=== PATIENT | male | born 1955 | race Caucasian/White ===

== ENCOUNTER → 2016-04-13 | Outpatient (CLI) | payer BC, OTHER ==
[2016-04-13 08:21] LABS: MEAN CORPUSCULAR HEMOGLOBIN 30.5 pg (27.0-33.0); MEAN CORPUSCULAR HGB CONC 34.1 g/dl (32.0-36.5); MEAN CORPUSCULAR VOLUME 89.3 fl (80.0-96.0); RED CELL DISTRIBUTION WIDTH 13.6 % (11.5-14.5); WHITE BLOOD COUNT 8.1 K/mm3 (4.0-10.0)
--- NOTE | 2016-04-13 08:40 | REP ---
PA AND LATERAL CHEST: INDICATION: Hypertension COMPARISON: PA and chest with left rib series 10/07/2014 Cardiomediastinal silhouette is normal. Lungs are clear bilaterally. There are mild degenerative changes within the thoracic spine with minimal thoracic dextroscoliosis. Soft tissues are within normal limits IMPRESSION: No acute cardiopulmonary process. Signed by Mattie Fields MD 04/13/2016 06:18 P
[2016-04-13 08:46] LABS: ALBUMIN 3.9 GM/DL (3.2-5.2); ALBUMIN/GLOBULIN RATIO 1.22 (1.00-1.93); ALKALINE PHOSPHATASE 96 U/L (45-117); ALT/SGPT 49 U/L (12-78); ANION GAP 8 MEQ/L (8-16); AST/SGOT 25 U/L (15-37); BILIRUBIN,TOTAL 0.7 MG/DL (0.2-1.0); BLOOD UREA NITROGEN 23 MG/DL (7-18); CALCIUM LEVEL 9.1 MG/DL (8.5-10.1); CARBON DIOXIDE LEVEL 28 MEQ/L (21-32); CHLORIDE LEVEL 107 MEQ/L (98-107); CHOLESTEROL LEVEL 241 MG/DL (<200); GLOMERULAR FILTRATION RATE > 60.0 (>56); GLUCOSE, FASTING 100 MG/DL (70-105); POTASSIUM SERUM 4.7 MEQ/L (3.5-5.1); SODIUM LEVEL 143 MEQ/L (136-145); TOTAL PROTEIN 7.1 GM/DL (6.4-8.2); TRIGLYCERIDES LEVEL 57 MG/DL (<150)
--- NOTE | 2016-04-14 17:13 | ECGEPIP ---
Stationary ECG Study [facility] Test Date: 2016-04-13 Pat Name: GINNY MATOS Department: Room: - Gender: M [employer]: : 1955 Requested By: Raghavendra Mayfield Order Number: [id number] Reading MD: Chago Raza Measurements Intervals [place] Rate: 71 P: 25 NC: 187 QRS: 24 QRSD: 113 T: 6 QT: 392 QTc: 428 Interpretive Statements NORMAL SINUS RHYTHM NORMAL Electronically Signed On 04-14-2016 17:13:52 EST by Chago Raza
== END ==
LOC: M LAB 07:34
PROVIDERS: ATTEND Family Medicine
DX: I10 Essential (primary) hypertension (principal)

== ENCOUNTER → 2016-06-20 | Outpatient (REF) | payer OTHER | LOC: M LAB REF 16:48 | PROVIDERS: ATTEND Physician Assistant | DX: J02.9 Acute pharyngitis, unspecified (principal) ==

== ENCOUNTER → 2016-09-12 | Outpatient (CLI) | payer BC, OTHER ==
[~2016-09-12] VITALS: Ht 180.3 cm; Wt 111.8 kg
[~2016-09-12] MED LIST: LIDOCAINE 2% INJ 100 MG/5 ML SDV (FOR ANES.) As Ordered ONE; NS 1,000 ML IV ONE; OMEP40CA2 PO; PROPOFOL 200 MG/20 ML VIAL As Ordered ONE
--- NOTE | 2016-09-12 10:02 | ROOR ---
Patient Name: Vincenzo Lee Procedure Date: 09/12/2016 9:34 AM Date of : 1955 Age: 60 Room: [facility] Gender: Male Note Status: Finalized Procedure: Upper Endoscopy + Biopsies Indications: Heartburn, Exclusion of Cochran's esophagus Providers: Dc Purcell MD Referring MD: CHARLEE ESCALERA MD Requesting Provider: Medicines: Monitored Anesthesia Care Complications: No immediate complications. Procedure: Pre-Anesthesia Assessment: - The heart rate, respiratory rate, oxygen saturations, blood pressure, adequacy of pulmonary ventilation, and response to care were monitored throughout the procedure. The Endoscope was introduced through the mouth, and advanced to the second part of duodenum. The upper GI endoscopy was accomplished without difficulty. The patient tolerated the procedure well. Findings: The Z-line was irregular and was found 41 cm from the incisors. Multiple biopsies were obtained with cold forceps for evaluation to rule out Cochran's Esophagus randomly at the gastroesophageal junction. No other significant abnormalities were identified in a careful examination of the stomach. Biopsies were taken with a cold forceps in the gastric antrum for Helicobacter pylori testing. The exam of the duodenum was otherwise normal. Impression: - Z-line irregular, 41 cm from the incisors. - Multiple biopsies were obtained at the gastroesophageal junction. - Biopsies were taken with a cold forceps for Helicobacter pylori testing. - The examination was otherwise normal. Recommendation: - Patient has a contact number available for emergencies. The signs and symptoms of potential delayed complications were discussed with the patient. Return to normal activities tomorrow. Written discharge instructions were provided to the patient. - High fiber diet. - Discharge patient to home. - Follow an antireflux regimen. - Continue present medications. - Await pathology results. - Telephone GI clinic for pathology results in 1 week. - Check Portal Online for Path Results.([email or web address]) - The findings and recommendations were discussed with the patient's family. Dc Purcell MD Dc Purcell MD 09/12/2016 10:01:54 AM This report has been signed electronically. Number of Addenda: 0 Note Initiated On: 09/12/2016 9:34 AM Estimated Blood Loss: Estimated blood loss: none.
--- NOTE | 2016-09-12 10:05 | ROOR ---
Patient Name: Vincenzo Lee Procedure Date: 09/12/2016 9:35 AM Date of : 1955 Age: 60 Room: [facility] Gender: Male Note Status: Finalized Procedure: Total Colonoscopy to Cecum Indications: Screening for colorectal malignant neoplasm Providers: Dc Purcell MD Referring MD: CHARLEE ESCALERA MD Requesting Provider: Medicines: Monitored Anesthesia Care Complications: No immediate complications. Procedure: Pre-Anesthesia Assessment: - The heart rate, respiratory rate, oxygen saturations, blood pressure, adequacy of pulmonary ventilation, and response to care were monitored throughout the procedure. The Colonoscope was introduced through the anus and advanced to the cecum, identified by appendiceal orifice and ileocecal valve. The colonoscopy was performed without difficulty. The patient tolerated the procedure well. The quality of the bowel preparation was excellent. Findings: The perianal and digital rectal examinations were normal. Non-bleeding internal hemorrhoids were found during retroflexion. The hemorrhoids were small and Grade I (internal hemorrhoids that do not prolapse). No other significant abnormalities were identified in a careful examination of the remainder of the colon. The exam was otherwise without abnormality on direct and retroflexion views. Impression: - Non-bleeding internal hemorrhoids. - The examination was otherwise normal on direct and retroflexion views. - No specimens collected. - The exam was otherwise normal to the cecum. Recommendation: - Patient has a contact number available for emergencies. The signs and symptoms of potential delayed complications were discussed with the patient. Return to normal activities tomorrow. Written discharge instructions were provided to the patient. - High fiber diet. - Discharge patient to home. - Continue present medications. - Repeat colonoscopy in 10 years for screening purposes. - Return to referring physician. - The findings and recommendations were discussed with the patient's family. Dc Purcell MD Dc Purcell MD 09/12/2016 10:05:29 AM This report has been signed electronically. Number of Addenda: 0 Note Initiated On: 09/12/2016 9:35 AM Estimated Blood Loss: Estimated blood loss: none.
[2016-09-12 10:15] VITALS: BP 138/69
== END | disposition home or self-care (01) ==
LOC: M OPP 08:54
PROVIDERS: ATTEND Internal Medicine Gastroenterology
DX: Z12.11 Encounter for screening for malignant neoplasm of colon (principal); K64.0 First degree hemorrhoids; R12 Heartburn; K22.8 Other specified diseases of esophagus; Z86.010 Personal history of colon polyps; Z79.899 Other long term (current) drug therapy
CPT/HCPCS: 43239; 88305; G0121

== ENCOUNTER → 2017-08-24 | Outpatient (REF) | payer OTHER ==
[2017-08-24 13:04] LABS: HEMATOCRIT 43.5 % (42.0-52.0); HEMOGLOBIN 15.2 g/dl (13.5-17.5); MEAN CORPUSCULAR HEMOGLOBIN 30.8 pg (27.0-33.0); MEAN CORPUSCULAR HGB CONC 34.9 g/dl (32.0-36.5); MEAN CORPUSCULAR VOLUME 88.1 fl (80.0-96.0); PLATELET COUNT, AUTOMATED 273 10^3/uL (150-450); RED BLOOD COUNT 4.94 10^6/uL (4.30-6.10); RED CELL DISTRIBUTION WIDTH 13.2 % (11.5-14.5); WHITE BLOOD COUNT 12.8 10^3/uL (4.0-10.0)
[2017-08-24 13:18] LABS: ADD MANUAL DIFFER YES; DIFF SLIDE NUMBER 242; POSITIVE MORPH POS FLAG
[2017-08-24 13:35] LABS: URIC ACID 4.1 MG/DL (3.5-7.2)
[2017-08-24 13:35] LABS: ANISOCYTOSIS 1+; BASOPHILS 1 % (0-4); C REACTIVE PROTEIN QUANTITATIV 2.62 MG/DL (0.00-0.30); LYMPHOCYTES 11 % (16-52); MONOCYTES 3 % (0-8); NEUTROPHILS 85 % (35-75); PLATELET ESTIMATE NORMAL (NORMAL); RHEUMATOID FACTOR QUANT < 10.0 IU/ML (<15.0)
[2017-08-24 13:44] LABS: ERYTHROCYTE SEDIMENTATION RATE 19 mm/hr (0-20)
[2017-08-26 00:07] LABS: ANTINUCLEAR ANTIBODIES DIRECT Negative (Negative); Lyme Disease IgG/IgM Antibodie <0.91 ISR (0.00-0.90); Lyme Disease IgM Ab Quantitati <0.80 index (0.00-0.79)
== END ==
LOC: M LABDRAW1 11:35
DX: M25.531 Pain in right wrist (principal)

== ENCOUNTER 2018-04-18 08:58 | Emergency (ER) | payer BC, OTHER ==
[~2018-04-18] VITALS: Ht 180.3 cm; Wt 104.5 kg
[~2018-04-18 08:58] MED LIST changes: -LIDOCAINE 2% INJ 100 MG/5 ML SDV (FOR ANES.) As Ordered ONE; -NS 1,000 ML IV ONE; -PROPOFOL 200 MG/20 ML VIAL As Ordered ONE
[2018-04-18 09:31] LABS: VENOUS BASE EXCESS 2.2 (-2.0-2.0); VENOUS HCO3 28.3 MEQ/L (23.0-27.0); VENOUS O2 SATURATION 91.4 % (60.0-80.0); VENOUS PARTIAL PRESSURE CO2 49.2 mmHg (38.0-50.0); VENOUS PARTIAL PRESSURE O2 63.8 mmHg (30.0-50.0); VENOUS PH 7.378 UNITS (7.330-7.430); VENOUS STANDARD HCO3 26.2 MEQ/L; VENOUS TOTAL CO2 29.8 MEQ/L (24.0-28.0)
[2018-04-18 09:33] LABS: BASO # 0.1 10^3/uL (0.0-0.2); BASO % 0.6 % (0.0-1.0); EOS # 0.1 10^3/uL (0.0-0.50); EOS % 1.5 % (0.0-3.0); HEMATOCRIT 43.8 % (42.0-52.0); HEMOGLOBIN 15.1 g/dl (13.5-17.5); LYMPH % 37.3 % (24.0-44.0); MEAN CORPUSCULAR HEMOGLOBIN 30.1 pg (27.0-33.0); MEAN CORPUSCULAR HGB CONC 34.5 g/dl (32.0-36.5); MEAN CORPUSCULAR VOLUME 87.4 fl (80.0-96.0); MONO # 0.7 10^3/uL (0.0-0.8); MONO % 8.4 % (0.0-5.0); NEUTROPHILS # 4.2 10^3/uL (1.8-7.7); PLATELET COUNT, AUTOMATED 313 10^3/uL (150-450); RED BLOOD COUNT 5.01 10^6/uL (4.30-6.10); WHITE BLOOD COUNT 8.1 10^3/uL (4.0-10.0)
--- NOTE | 2018-04-18 09:46 | REP ---
CT Head without contrast HISTORY: Altered mental status COMPARISON: None There is no intraparenchymal hemorrhage, acute infarct, mass or midline shift. The ventricular system is normal in appearance. There is no extra cerebral collection. There is no fracture. The visualized sinuses are clear. IMPRESSION: There is no intracranial lesion. Electronically Signed by Justen Daniel MD 04/18/2018 09:38 A
[2018-04-18] MEDS ORDERED: MECLIZINE 25 MG TABLET PO ONE (10:00)
[2018-04-18 10:03] LABS: ALBUMIN 3.6 GM/DL (3.2-5.2); ALT/SGPT 48 U/L (12-78); BILIRUBIN,DIRECT 0.1 MG/DL (0.0-0.2); BILIRUBIN,TOTAL 0.5 MG/DL (0.2-1.0); BLOOD UREA NITROGEN 19 MG/DL (7-18); CALCIUM LEVEL 8.8 MG/DL (8.8-10.2); CARBON DIOXIDE LEVEL 26 MEQ/L (21-32); CHLORIDE LEVEL 107 MEQ/L (98-107); CPK CREATINE PHOSPHOKINASE 74 U/L (39-308); CREATININE FOR GFR 0.75 MG/DL (0.70-1.30); GLOMERULAR FILTRATION RATE > 60.0 (>49); GLUCOSE, FASTING 112 MG/DL (70-100); MB/CK RELATIVE INDEX 1.49 (< OR =4); POTASSIUM SERUM 4.1 MEQ/L (3.5-5.1); SODIUM LEVEL 139 MEQ/L (136-145); TOTAL PROTEIN 6.9 GM/DL (6.4-8.2); TROPONIN I < 0.02 NG/ML (< 0.10)
[2018-04-18] MEDS ORDERED: diazePAM 5 MG TAB PO ONE (10:45)
[2018-04-18] MEDS ORDERED: NS 1,000 ML IV ONE (11:15)
[2018-04-18] MEDS ORDERED: MECL-68 PO (13:31)
[2018-04-18] MEDS ORDERED: ASPI81TA85 PO (13:33)
--- NOTE | 2018-04-18 13:36 | ECGEPIP ---
Stationary ECG Study [facility] - ED Test Date: 2018-04-18 Pat Name: GINNY MATOS Department: Room: - Gender: M [employer] Member: : 1955 Requested By: Omayra Cat Order Number: [id number] Reading MD: Jakub Buchanan Measurements Intervals [place] Rate: 59 P: 36 [place]: 204 QRS: 33 QRSD: 138 T: 13 QT: 409 QTc: 407 Interpretive Statements SINUS BRADYCARDIA INCOMPLETE RIGHT BUNDLE BRANCH BLOCK NSTTW ABNORMALITIES SIMILAR TO 04/13/16 Electronically Signed On 04-18-2018 13:35:56 EST by Jakub Buchanan
[2018-04-18 13:43] VITALS: BP 123/72
== END 2018-04-18 13:56 | disposition home or self-care (01) ==
LOC: M ED 08:58
DX: R42 Dizziness and giddiness (principal); I10 Essential (primary) hypertension; E07.9 Disorder of thyroid, unspecified; Z79.899 Other long term (current) drug therapy; Z79.82 Long term (current) use of aspirin

== ENCOUNTER → 2018-07-31 | Outpatient (REF) | payer OTHER ==
[~2018-07-31] MED LIST changes: +ASPI81TA85 PO; +MECL-68 PO
[2018-08-03 00:08] LABS: Lyme Disease IgG/IgM Antibodie <0.91 ISR (0.00-0.90); Lyme Disease IgM Ab Quantitati <0.80 index (0.00-0.79)
== END ==
LOC: M LAB REF 17:44
PROVIDERS: ATTEND Internal Medicine
DX: Z11.59 Encounter for screening for other viral diseases (principal)

== ENCOUNTER → 2019-08-01 | Outpatient (REF) | payer OTHER ==
[~2019-08-01] MED LIST changes: -MECL-68 PO; +MECL1TAB31 PO; -OMEP40CA2 PO; +OMEP40CA97 PO
[2019-08-02 14:06] LABS: Lyme Disease IgG/IgM Antibodie <0.91 ISR (0.00-0.90); Lyme Disease IgM Ab Quantitati <0.80 index (0.00-0.79)
== END ==
LOC: M LAB REF 12:05
PROVIDERS: ATTEND Internal Medicine
DX: Z11.59 Encounter for screening for other viral diseases (principal)

== ENCOUNTER → 2023-03-13 | Outpatient (CLI) | payer MEDICARE ==
[~2023-03-13] MED LIST changes: -ASPI81TA85 PO; +ASPI81TA86 PO; +MECL-209 PO; -MECL1TAB31 PO; +OMEP40CA4 PO; -OMEP40CA97 PO
[2023-03-13 17:49] LABS: BASO # 0.1 10^3/uL (0.0-0.2); BASO % 0.6 % (0.0-1.0); EOS # 0.2 10^3/uL (0.0-0.5); EOS % 2.2 % (0.0-3.0); HEMATOCRIT 43.4 % (42.0-52.0); HEMOGLOBIN 14.3 g/dl (13.5-17.5); LYMPH # 3.3 10^3/uL (1.5-5.0); LYMPH % 36.9 % (24.0-44.0); MEAN CORPUSCULAR HEMOGLOBIN 30.6 pg (27.0-33.0); MEAN CORPUSCULAR HGB CONC 32.9 g/dl (32.0-36.5); MEAN CORPUSCULAR VOLUME 92.7 fl (80.0-96.0); MONO # 0.9 10^3/uL (0.0-0.8); MONO % 10.4 % (2.0-8.0); NEUTROPHILS # 4.5 10^3/uL (1.5-8.5); NEUTROPHILS % 49.6 % (36.0-66.0); PLATELET COUNT, AUTOMATED 324 10^3/uL (150-450); RED BLOOD COUNT 4.68 10^6/uL (4.30-6.10)
[2023-03-13 18:10] LABS: ALBUMIN 3.7 G/DL (3.2-5.2)
[2023-03-13 18:17] LABS: PERCENT SATURATION 44.5 % (19.7-50.0)
[2023-03-13 18:18] LABS: FERRITIN 317.3 NG/ML (10.5-307.3)
== END ==
LOC: M WUC 10:26
PROVIDERS: ATTEND Orthopaedic Surgery
DX: Z01.818 Encounter for other preprocedural examination (principal); M25.562 Pain in left knee; M17.12 Unilateral primary osteoarthritis, left knee

== ENCOUNTER → 2023-04-06 | Outpatient (CLI) | payer OTHER | LOC: M EKG 08:13 | PROVIDERS: ATTEND Orthopaedic Surgery | DX: Z01.818 Encounter for other preprocedural examination (principal); Q24.9 Congenital malformation of heart, unspecified; I45.19 Other right bundle-branch block ==

== ENCOUNTER → 2023-07-16 | Outpatient (REF) | payer MEDICARE, OTHER | LOC: M LAB REF 19:53 | PROVIDERS: ATTEND Physician Assistant | DX: Z79.899 Other long term (current) drug therapy (principal); W57.XXXA Bitten or stung by nonvenomous insect and other nonvenomous arthropods, initial encounter ==

== ENCOUNTER → 2024-05-28 | Outpatient (REF) | payer MEDICARE, OTHER | LOC: M LAB REF 13:03 | PROVIDERS: ATTEND Internal Medicine | DX: E29.1 Testicular hypofunction (principal) ==